=== PATIENT | female | born 1985 | race Caucasian/White ===

== ENCOUNTER 2017-08-15 09:49 | Outpatient (CLI) | payer MEDICAID ==
[~2017-08-15 09:49] MED LIST: CEPH-571 PO; SUCR1TAB PO
== END 2017-08-15 23:59 | disposition home or self-care (01) ==
LOC: RAD 09:49
PROVIDERS: ATTEND Physician Assistant
DX: M11.011 Hydroxyapatite deposition disease, right shoulder (principal); M25.511 Pain in right shoulder; M75.31 Calcific tendinitis of right shoulder; Z79.899 Other long term (current) drug therapy
CPT/HCPCS: 73221

== ENCOUNTER 2018-01-31 21:44 | Emergency (ER) | payer MEDICAID ==
[~2018-01-31] VITALS: Ht 165.1 cm; Wt 67.3 kg
[2018-01-31 21:49] VITALS: BP 107/67
[2018-01-31] MEDS ORDERED: diphenhydrAMINE 25mg capsule PO ONE (22:15)
== END 2018-01-31 22:35 | disposition home or self-care (01) ==
LOC: ER 21:45
DX: T78.40XA Allergy, unspecified, initial encounter (principal); G89.29 Other chronic pain; Z98.51 Tubal ligation status; Z88.2 Allergy status to sulfonamides; Z88.1 Allergy status to other antibiotic agents; Z88.6 Allergy status to analgesic agent; Z88.8 Allergy status to other drugs, medicaments and biological substances; X58.XXXA Exposure to other specified factors, initial encounter
CPT/HCPCS: 99282; Q0163